=== PATIENT | female | born 2000 | race Two or more races ===

== ENCOUNTER 2024-02-13 22:13 | Emergency (ER) | payer OTHER ==
[2024-02-13 22:19] VITALS: BP 135/77; RESP 18; TEMP 98; BMI 21.2
[2024-02-13] MEDS: LACTATED RINGERS SOLUTION 1000 ML INFUS.BAG IV ONE (23:02)
[2024-02-13 23:04] LABS: BASO % 0.4 % (0-2.0); EOS % 0.4 % (0-4.5); HEMATOCRIT 40.1 % (32.4-45.2); HEMOGLOBIN 13.2 GM/dL (10.7-15.3); LYMPH % 36.9 % (8-40); MCH 27.6 pg (25.7-33.7); MCHC 32.9 g/dl (32.0-36.0); MEAN PLT VOLUME 8.2 fl (7.5-11.1); MONO % 7.4 % (3.8-10.2); NEUT % 54.9 % (42.8-82.8); PLATELET COUNT 289 10^3/uL (134-434); RBC 4.77 M/mm3 (3.60-5.2); RDW 13.7 % (11.6-15.6); WHITE BLOOD COUNT 6.8 K/mm3 (4.0-10.0)
[2024-02-13 23:06] LABS: URINE APPEARANCE CLEAR; URINE BILIRUBIN NEGATIVE (NEGATIVE); URINE COLOR YELLOW; URINE GLUCOSE (UA) NEGATIVE (NEGATIVE); URINE KETONE NEGATIVE (NEGATIVE); URINE LEUK ESTERASE NEGATIVE (NEGATIVE); URINE NITRITE NEGATIVE (NEGATIVE); URINE PROTEIN NEGATIVE (NEGATIVE); URINE UROBILINOGEN 0.2 mg/dL (0.2-1.0)
[2024-02-13 23:10] LABS: INR 1.03 (0.83-1.09); PROTHROMBIN TIME (PATIENT) 11.6 SEC (9.7-13.0)
[2024-02-13 23:13] LABS: ACTIVATED PTT 33.9 SECONDS (25.2-36.5)
[2024-02-13 23:17] VITALS: PULSE 91
[2024-02-13 23:18] LABS: HCG,QUALITATIVE URINE Negative
[2024-02-13 23:25] LABS: POTASSIUM 3.9 mmol/L (3.5-5.1)
[2024-02-13 23:26] LABS: CALCIUM 9.1 mg/dL (8.5-10.1)
[2024-02-13 23:27] LABS: ALBUMIN 3.8 g/dl (3.4-5.0)
[2024-02-13 23:30] LABS: CREATININE 1.1 mg/dL (0.55-1.3)
[2024-02-13 23:32] LABS: TOT PROT 7.6 g/dl (6.4-8.2)
== END 2024-02-14 00:46 | disposition home or self-care (01) ==
LOC: JER 22:13
DX: R00.2 Palpitations (principal); F12.90 Cannabis use, unspecified, uncomplicated; R06.02 Shortness of breath
CPT/HCPCS: 36415; 71045-TC-FY; 80053; 81003; 83735; 84439; 84443; 84484; 84703; 85025; 85610; 85730; 93005; 93010; 99285-25